=== PATIENT | male | born 1935 | race Caucasian/White ===

== ENCOUNTER 2018-05-21 08:48 | Emergency (ER) | payer MEDICARE ==
[~2018-05-21] VITALS: Ht 190.5 cm; Wt 91.6 kg
[~2018-05-21 08:48] MED LIST: ASPIRIN EC81 MG PO; FISH OIL + VIT1 EACH PO; LOVASTATIN40 MG PO; METOPROLOL SUCC25 MG PO; PLAVIX75 MG PO; ZETIA10 MG PO
--- NOTE | 2018-05-21 10:10 | Diagnostic Imaging Report ---
EXAM: XR CHEST 2 VIEWS DATE: 05/21/2018 9:01 AM INDICATION: Upper respiratory infection. COMPARISON: None FINDINGS: Lines and Tubes: None Heart and Mediastinum: No acute cardiomediastinal findings. Lungs and Pleura: No pneumothorax or focal consolidation. Questionable nodular densities left midlung. Bones and Soft Tissues: No acute findings. IMPRESSION: 1. Questionable nodular density left midlung. Given history, focal area of pneumonitis possible. 2 view chest x-ray follow-up recommended for weeks upon resolution of acute symptoms. If findings persist, CT chest would be recommended. Signed by: Dr. Adryan eMjia MD on 05/21/2018 10:06 AM
[2018-05-21 10:30] VITALS: BP 147/76
== END 2018-05-21 10:37 | disposition home or self-care (01) ==
LOC: ER 08:48
DX: R05 Cough (principal); J15.9 Unspecified bacterial pneumonia; I10 Essential (primary) hypertension; I25.10 Atherosclerotic heart disease of native coronary artery without angina pectoris
CPT/HCPCS: 71046; 99283